=== PATIENT | male | born 1955 | race Caucasian/White ===

== ENCOUNTER 2020-12-12 10:28 | Emergency (ER) | payer MEDICARE, MEDICAID, SELFPAY ==
[2020-12-12 10:35] VITALS: BP 191/90; PULSE 70; RESP 16; TEMP 37.1; O2SAT 99
--- NOTE | 2020-12-12 10:39 | ED.DENTAL ---
HPI - Dental/Oral General Chief complaint: Dental/Oral Stated complaint: toothache Time Seen by Provider: 12/12/20 10:40 Source: patient and RN notes reviewed Mode of arrival: ambulatory Limitations: no limitations History of Present Illness HPI Narrative: 65-year-old male presents with concern for right upper dental pain. Reports in the past he broke tooth #6 and was not able to afford to have it repaired. Reports 1 other instance of infection in that area. Reports 4-day history of dental pain on the upper right side. He denies any fever, general malaise, body aches, foul taste. Reports he has been taking ibuprofen with intermittent relief. MD Complaint: tooth pain Related Data Home Medications Medication Instructions Recorded Confirmed aspirin 81 mg tablet,delayed 81 mg PO DAILY 01/17/20 05/30/20 release omega-3 fatty acids 1,000 mg 1,000 mg PO DAILY 01/17/20 05/30/20 capsule Allergies Allergy/AdvReac Type Severity Reaction Status Date / Time azithromycin Allergy Unknown Unknown Verified 05/30/20 09:00 Penicillins Allergy Unknown Unknown Verified 05/30/20 09:00 Review of Systems Review of Systems: Narrative: CONSTITUTIONAL: Denies malaise, chills, sweats, or fever. EYES: Denies visual changes, redness, or discharge. ENT: Denies rhinorrhea, congestion, sinus pain, otalgia or sore throat. Reports right upper dental pain CARDIOVASCULAR: Denies chest pain, palpitations, or edema. RESPIRATORY: Denies cough or dyspnea. SKIN: Denies rash or itching. MUSCULOSKELETAL: Denies myalgia. NEUROLOGIC: Denies numbness, weakness, or headache. All systems reviewed & are unremarkable except as noted in HPI and below PMFSH Past Medical History Medical History (Updated 12/12/20 @ 10:46 by Miri Urena NP) Abnormal EKG CKD (chronic kidney disease) stage 3, GFR 30-59 ml/min Essential hypertension Metabolic syndrome Mixed hyperlipidemia Prediabetes Renal artery stenosis Renovascular hypertension Smoking Uncontrolled type 2 diabetes mellitus with hyperglycemia Surgical History Surgical History History of appendectomy Family History Family History Mother Cerebrovascular accident Family history of dementia Family history of diabetes mellitus in first degree relative Father Family history of congestive heart failure Family history of cardiovascular disease Family history of diabetes mellitus in first degree relative Sibling Hypertension Social History Social History Smoking status: Heavy tobacco smoker Alcohol intake: never Comments At time of signature, agree with nursing past medical, surgical, social and family history. There is no relevant family history pertinent to the presenting complaint Exam Narrative: Exam Narrative: GENERAL: Well-appearing, well-nourished, and in no acute distress. HEAD: Normocephalic, atraumatic. EYES: PERRLA, conjunctivae clear ENT: Nares clear, turbinates pink, no rhinorrhea or epistaxis. Mucous membranes moist. Oropharynx without edema, erythema or lesions. Caries noted, tooth #6 broken with surrounding erythema and edema to the gumline, no periapical abscess noted, no significant facial swelling noted NECK: Supple. No lymphadenopathy. CHEST: No respiratory distress. Speaks in full sentences. HEART: Regular rate and rhythm. SKIN: Warm, dry, no rash. NEURO: Alert and oriented x3. PSYCH: Normal mood and affect Course Course Emergency Course: Patient is aware of diagnosis, understands and agrees to treatment plan. Anticipatory guidance given. Patient agrees to follow-up as directed and is aware of reasons to seek care at the emergency department. Portions of this record may have been created with voice recognition software Vital Signs Vital signs: Vital Signs Temperature 98.8 F 12/12/20 1
== END 2020-12-12 10:52 | disposition home or self-care (01) ==
PROVIDERS: Emergency Provider Nurse Practitioner; PCP Family Medicine
DX: K08.89 Other specified disorders of teeth and supporting structures (principal); I12.9 Hypertensive chronic kidney disease with stage 1 through stage 4 chronic kidney disease, or unspecified chronic kidney disease; N18.30 Chronic kidney disease, stage 3 unspecified; E11.22 Type 2 diabetes mellitus with diabetic chronic kidney disease; E88.81 Metabolic syndrome and other insulin resistance; E78.2 Mixed hyperlipidemia; I70.1 Atherosclerosis of renal artery
CPT/HCPCS: 99213; G0463

== ENCOUNTER 2022-03-14 14:02 | Outpatient (CLI) | payer MEDICARE, MEDICAID, SELFPAY ==
[2022-03-14 20:10] LABS: Alanine Aminotransferase 23 U/L (6-50); Albumin Level 4.6 g/dL (3.5-5.1); Alkaline Phosphatase 99 U/L (38-126); Anion Gap 9 mmol/L (8-16); Aspartate Amino Transferase 26 U/L (17-59); Bilirubin,Total 0.5 mg/dL (0.2-1.3); Blood Urea Nitrogen 28 mg/dL (9-20); Calcium 9.8 mg/dL (8.4-10.2); Carbon Dioxide 24 mmol/L (22-30); Chloride 109 mmol/L (98-107); Cholesterol 216 mg/dL (0-200); Creatinine Urine 102.2 mg/dL; Estimated Glomerular Filt Rate 43; Glucose 100 mg/dL (65-110); HDL Direct 32 mg/dL; Potassium 4.6 mmol/L (3.4-5.0); Sodium 142 mmol/L (137-145); Triglycerides 271 mg/dL (<150)
[2022-03-14 20:18] LABS: Hemoglobin A1C 5.7 % (<5.7)
[2022-03-14 20:20] LABS: LDL Cholesterol Direct 127 mg/dL
[2022-03-14 20:26] LABS: Vitamin D 25 Hydroxy 37.2 ng/mL
[2022-03-14 21:12] LABS: MALB Creatinine Ratio 845.4 mg/g (0-30)
== END 2022-03-14 14:03 | disposition home or self-care (01) ==
PROVIDERS: PCP Family Medicine; Visit Provider Family Medicine
DX: E11.9 Type 2 diabetes mellitus without complications (principal); E55.9 Vitamin D deficiency, unspecified
CPT/HCPCS: 36415; 80053; 80061; 82043; 82306; 83036

== ENCOUNTER 2022-09-03 15:11 | Outpatient (CLI) | payer MEDICARE, MEDICAID, SELFPAY ==
[2022-09-03 20:17] LABS: Vitamin D 25 Hydroxy 32.9 ng/mL
[2022-09-03 20:52] LABS: Alanine Aminotransferase 23 U/L (6-50); Alkaline Phosphatase 102 U/L (38-126); Anion Gap 12 mmol/L (8-16); Aspartate Amino Transferase 31 U/L (17-59); Bilirubin,Total 0.5 mg/dL (0.2-1.3); Blood Urea Nitrogen 33 mg/dL (9-20); Calcium 9.6 mg/dL (8.4-10.2); Carbon Dioxide 20 mmol/L (22-30); Chloride 109 mmol/L (98-107); Cholesterol 223 mg/dL (0-200); Estimated Glomerular Filt Rate 46; Glucose 103 mg/dL (65-110); HDL Direct 30 mg/dL; Potassium 4.5 mmol/L (3.4-5.0); Sodium 141 mmol/L (137-145); Triglycerides 301 mg/dL (<150)
[2022-09-03 21:00] LABS: Prostate Specific Antigen 3.7 ng/mL (< OR = 4.0)
[2022-09-03 21:03] LABS: LDL Cholesterol Direct 124 mg/dL
[2022-09-03 21:48] LABS: Creatinine Urine 94.1 mg/dL
[2022-09-03 22:08] LABS: Hemoglobin A1C 5.9 % (<5.7)
[2022-09-03 23:09] LABS: MALB Creatinine Ratio 567.3 mg/g (0-30); Microalbumin Urine Random 533.8 mg/L (0-16.7)
== END 2022-09-03 15:12 | disposition home or self-care (01) ==
PROVIDERS: PCP Family Medicine; Visit Provider Family Medicine
DX: E11.9 Type 2 diabetes mellitus without complications (principal); E55.9 Vitamin D deficiency, unspecified; Z12.5 Encounter for screening for malignant neoplasm of prostate
CPT/HCPCS: 36415; 80053; 80061; 82043; 82306; 83036; 84153; G0103

== ENCOUNTER 2023-01-23 07:30 | Outpatient (CLI) | payer MEDICARE, MEDICAID, SELFPAY ==
--- NOTE | ~2023-01-23 | US_ITS ---
Ultrasound of the Abdominal Aorta INDICATION: Abdominal aortic aneurysm, smoking history TECHNIQUE: Grayscale, color Doppler, and pulsed Doppler images of the aorta and common iliac arteries were obtained. COMPARISON: None. FINDINGS: Maximum vascular dimensions are as follows: Proximal aorta: 3.0 cm Mid aorta: 1.9 cm Distal aorta: 1.6 cm Right common iliac artery: 0.9 cm Left common iliac artery: 1.0 cm There is no evidence of abdominal aortic aneurysm. IMPRESSION: No evidence of abdominal aortic aneurysm. Reviewed, dictated and finalized at location M.
--- NOTE | ~2023-01-23 | CT_ITS ---
CT Scan of the Chest without Contrast: Clinical Indication: Lung cancer screening, smoking history, personal history of nicotine dependence Technique: Contiguous sections were acquired throughout the chest without intravenous contrast. Dose reduction technique was used on this scan by utilizing automated exposure control and iterative recon struction technique. The dose-length product (DLP) was 140.04 mGy-cm. Findings: There is no evidence of any significant mediastinal, hilar or axillary lymphadenopathy. Coronary darvin ry calcifications are present. There is no evidence of pleural or pericardial effusion. 3 mm peripheral left upper lobe pulmonary nodule noted (axial image 51). No other pulmonary nodule id entified. Images through the upper abdomen reveal no abnormalities. Impression: Lung-RADS 2: Benign appearance. 12 month follow-up screening CT advised. Reviewed, dictated and finalized at [facility]. Impression: Lung-RADS 2: Benign appearance. 12 month follow-up screening CT advised.
== END 2023-01-23 07:31 | disposition home or self-care (01) ==
PROVIDERS: PCP Family Medicine; Visit Provider Family Medicine
DX: Z12.2 Encounter for screening for malignant neoplasm of respiratory organs (principal); F17.210 Nicotine dependence, cigarettes, uncomplicated
CPT/HCPCS: 71271; 76775

== ENCOUNTER → 2023-12-01 14:12 | Outpatient (CLI) | payer MEDICARE, MEDICAID, SELFPAY ==
--- NOTE | ~2023-12-01 | US_ITS ---
Renal-Bladder ultrasound Clinical History: Chronic kidney disease Technique: Real-time sonographic imaging of the kidneys and urinary bladder was performed. Findings: The right kidney measures 9.8 cm in length and the left kidney measures 10.5 cm. There is n o hydronephrosis or renal calculus identified. Renal cortical echogenicity is within normal limits. N o renal mass lesion is identified. The urinary bladder is partially distended at the time of this exam. No intraluminal echoes are ident ified. No abnormal wall thickening is seen. Impression: Unremarkable ultrasound of the kidneys and urinary bladder. Reviewed, dictated and finalized at location M. R ADJUSTER Impression: Unremarkable ultrasound of the kidneys and urinary bladder.
== END ==
PROVIDERS: PCP Internal Medicine Nephrology; Visit Provider Internal Medicine Nephrology
DX: I12.9 Hypertensive chronic kidney disease with stage 1 through stage 4 chronic kidney disease, or unspecified chronic kidney disease (principal); N18.32 Chronic kidney disease, stage 3b
CPT/HCPCS: 76775

== ENCOUNTER 2024-01-19 13:21 | Outpatient (CLI) | payer MEDICARE, MEDICAID, SELFPAY ==
[2024-01-19 20:43] LABS: Vitamin D 25 Hydroxy 32.4 ng/mL
[2024-01-19 21:46] LABS: Cholesterol 154 mg/dL (0-200); HDL Direct 24 mg/dL; Triglycerides 344 mg/dL (<150)
[2024-01-19 21:57] LABS: LDL Cholesterol Direct 91 mg/dL
[2024-01-19 23:01] LABS: Hemoglobin A1C 5.7 % (<5.7)
== END 2024-01-19 13:22 | disposition home or self-care (01) ==
LOC: ANHBWCLAB 13:23
PROVIDERS: PCP Nurse Practitioner Adult Health; Visit Provider Nurse Practitioner Adult Health
DX: E55.9 Vitamin D deficiency, unspecified (principal); I10 Essential (primary) hypertension; R73.03 Prediabetes
CPT/HCPCS: 36415; 80061; 82306; 83036

== ENCOUNTER 2024-09-16 14:03 | Outpatient (CLI) | payer MEDICARE, MEDICAID, SELFPAY ==
[2024-09-16 20:11] LABS: Cholesterol 247 mg/dL (0-200); HDL Direct 33 mg/dL; Triglycerides 381 mg/dL (<150)
[2024-09-16 20:22] LABS: LDL Cholesterol Direct 134 mg/dL
[2024-09-16 22:14] LABS: Hemoglobin A1C 6.1 % (<5.7)
== END 2024-09-16 14:04 | disposition home or self-care (01) ==
LOC: ANHBWCLAB 14:06
PROVIDERS: PCP Nurse Practitioner Adult Health; Visit Provider Nurse Practitioner Adult Health
DX: E11.65 Type 2 diabetes mellitus with hyperglycemia (principal)
CPT/HCPCS: 36415; 80061; 83036